=== PATIENT | female | born 1990 | race African-American/Black ===

== ENCOUNTER 2019-11-19 23:38 | Emergency (ER) | payer MEDICAID ==
[~2019-11-19] VITALS: Ht 175.3 cm; Wt 97.5 kg
[2019-11-19 23:50] VITALS: BP 151/89
[2019-11-20] MEDS ORDERED: DIPH,PERTUSS(ACELL),TET VAC/PF 0.5 ML SYRINGE. VAX IM ONE (01:00)
[2019-11-20] MEDS ORDERED: LIDOCAINE 1%/EPI 1:100,000 20 ML VIAL. INJ ONE (01:00)
--- NOTE | 2019-11-20 01:03 | PHYS DOC ---
Past Medical History Past Medical History: Other Additional Past Medical Histor: FIBROIDS Past Surgical History: Smoking Status: Current Every Day Smoker Alcohol Use: Rarely Drug Use: None General Adult EDM: Chief Complaint: LACERATION/AVULSION HPI: HPI: Patient is a 28-year-old female presents with chief complaint of laceration overlying the right knee. Patient states is prior to arrival she was trying to shave down her boyfriend's callus using a sharp object. States it slipped and cut the right knee overlying the patella. She noted immediate bleeding. Unsure of last tetanus. No other complaints. Review of Systems: Review of Systems: Constitutional: Denies fever or chills. [] Eyes: Denies change in visual acuity. [] HENT: Denies nasal congestion or sore throat. [] Respiratory: Denies cough or shortness of breath. [] Cardiovascular: Denies chest pain or edema. [] GI: Denies abdominal pain, nausea, vomiting, bloody stools or diarrhea. [] : Denies dysuria. [] Musculoskeletal: Denies back pain or joint pain. [] Integument: Positive for laceration Neurologic: Denies headache, focal weakness or sensory changes. [] Endocrine: Denies polyuria or polydipsia. [] Lymphatic: Denies swollen glands. [] Psychiatric: Denies depression or anxiety. [] Heart Score: Risk Factors: Risk Factors: DM, Current or recent (<one month) smoker, HTN, HLP, family history of CAD, obesity. Risk Scores: Score 0 - 3: 2.5% MACE over next 6 weeks - Discharge Home Score 4 - 6: 20.3% MACE over next 6 weeks - Admit for Clinical Observation Score 7 - 10: 72.7% MACE over next 6 weeks - Early Invasive Strategies Current Medications: Current Medications Medications (Trade) Dose Ordered Sig/Mike Start Time Stop Time Status Last Admin Dose Admin Diphtheria/ Tetanus/Acell Pertussis (ADACEL TDap SYRINGE) 0.5 ml ONCE ONCE 11/20/19 01:00 11/20/19 01:01 11/20/19 00:49 0.5 ML Lidocaine/ Epinephrine (LIDOCAINE 1%-EPI 1:100,000 Multi-Dose) 10 ml 1X ONCE 11/20/19 01:00 11/20/19 01:01 11/20/19 00:50 10 ML Allergies: Allergies: Allergies Coded Allergies Type Severity Reaction Last Updated Verified No Known Drug Allergies 12/22/13 No Physical Exam: PE: Constitutional: Well developed, well nourished, no acute distress, non-toxic appearance. [] HENT: Normocephalic, atraumatic, bilateral external ears normal, oropharynx moist, no oral exudates, nose normal. [] Eyes: PERRLA, EOMI, conjunctiva normal, no discharge. [] Neck: Normal range of motion, no tenderness, supple, no stridor. [] Cardiovascular:Heart rate regular rhythm, no murmur [] Lungs & Thorax: Bilateral breath sounds clear to auscultation [] Abdomen: Bowel sounds normal, soft, no tenderness, no masses, no pulsatile masses. [] Skin: Warm, dry, no erythema, no rash. [] Back: No tenderness, no CVA tenderness. [] Extremities: No tenderness, no cyanosis, no clubbing, ROM intact, no edema. [] Neurologic: Alert and oriented X 3, normal motor function, normal sensory function, no focal deficits noted. [] Psychologic: Affect normal, judgement normal, mood normal. [] Current Patient Data: Vital Signs: Vital Signs Date Time Temp Pulse Resp B/P (MAP) Pulse Ox O2 Delivery O2 Flow Rate FiO2 11/19/19 23:50 97.7 104 16 151/89 (109) 95 97.7 EKG: EKG: [] Radiology/Procedures: Radiology/Procedures: [] Laceration Repair: Obtained verbal consent from patient. Time out done prior to procedure. No sedation was required. 1 Laceration(s) to right knee. Sterile drape fashioned, following sterile procedure. Procedure: Laceration Repair Length: 1.5 cm Description: Clean Mechanism: Knife Shape: Linear Complex: No The wound area was prepped and draped in a sterile fashion. The wound area was anesthetized with 1% lidocaine with epinephrine The wound was explored with the following results: Superficial, adipose tissue visualized, no tendon involvement. Does not probe to bone.. The wound was repaired with 3-0; nylon sutures were used. The wound was dressed cleanly. The patient tolerated the procedure well. Course & Med Decision Making: Course & Med Decision Making Pertinent Labs and Imaging studies reviewed. (See chart for details) [] Patient is a well-appearing 28-year-old female presents with chief complaint of laceration overlying the right kneecap. See procedure note for further details. Given the superficial nature of the wound plain film imaging was deferred. Mechanism of injury overall with a clean knife. Antibiotics to be deferred. Tetanus updated. Instructed to have sutures removed in 5 to 7 days. Return precautions discussed and understood. Stable for discharge home. Dragon Disclaimer: Dragon Disclaimer: This electronic medical record was generated, in whole or in part, using a voice recognition dictation system. Departure Departure Impression: Primary Impression: Laceration Disposition: 01 HOME, SELF-CARE Condition: STABLE Referrals: NO PCP (PCP) Patient Instructions: Laceration Care, Adult Additional Instructions: Please have sutures removed in the next 5 to 7 days Justicifation of Admission Dx: Justifications for Admission: Justification of Admission Dx: N/A FIDELIA PORTILLO DO Nov 20, 2019 01:03
== END 2019-11-20 01:29 | disposition home or self-care (01) ==
LOC: ER 23:38
DX: S81.011A Laceration without foreign body, right knee, initial encounter (principal); F17.200 Nicotine dependence, unspecified, uncomplicated; W26.0XXA Contact with knife, initial encounter; Y93.89 Activity, other specified; Y92.89 Other specified places as the place of occurrence of the external cause; Y99.8 Other external cause status
CPT/HCPCS: 12001; 90471; 90715; 99283; J3490

== ENCOUNTER 2019-12-04 17:11 | Emergency (ER) | payer MEDICAID ==
[~2019-12-04] VITALS: Ht 172.7 cm; Wt 97.0 kg
[2019-12-04 18:24] VITALS: BP 152/100
--- NOTE | 2019-12-04 18:27 | PHYS DOC ---
Past Medical History Past Medical History: Other Additional Past Medical Histor: FIBROIDS Past Surgical History: Smoking Status: Current Every Day Smoker Alcohol Use: Rarely Drug Use: None General Adult EDM: Chief Complaint: SUTURE/STAPLE REMOVAL HPI: HPI: Patient is a 29 year old AA female who presents emergency department for suture removal. Patient reports that she had 4 sutures placed in the right anterior knee 2 weeks ago. She denies any purulent drainage, fever, or warmth to the affected area. She reports some mild redness around the wound edges. She currently denies any pain. Review of Systems: Review of Systems: Constitutional: Denies fever or chills. [] Musculoskeletal: Denies joint pain. [] Integument: See HPI Neurologic: Denies focal weakness or sensory changes. [] Complete ROS is negative unless otherwise stated in the HPI. Heart Score: Risk Factors: Risk Factors: DM, Current or recent (<one month) smoker, HTN, HLP, family history of CAD, obesity. Risk Scores: Score 0 - 3: 2.5% MACE over next 6 weeks - Discharge Home Score 4 - 6: 20.3% MACE over next 6 weeks - Admit for Clinical Observation Score 7 - 10: 72.7% MACE over next 6 weeks - Early Invasive Strategies Allergies: Allergies: Allergies Coded Allergies Type Severity Reaction Last Updated Verified No Known Drug Allergies 12/22/13 No Physical Exam: PE: Constitutional: Well developed, well nourished, no acute distress, non-toxic appearance. [] HENT: Normocephalic, atraumatic, bilateral external ears normal, nose normal. [] Eyes: PERRLA, EOMI, conjunctiva normal, no discharge. [] Neck: Normal range of motion, no stridor. [] Cardiovascular:Heart rate regular rhythm Lungs & Thorax: Respirations even and unlabored, no retractions, no respiratory distress Skin: Right knee: [address], wound edges are well approximated, no purulent drainage, mild erythema around the laceration site without warmth, wa rm, dry, no erythema, no rash. [] Extremities: Right knee: No cyanosis, ROM intact, no edema. [] Neurologic: Alert and oriented X 3, no focal deficits noted. [] Psychologic: Affect normal, judgement normal, mood normal. [] EKG: EKG: [] Radiology/Procedures: Radiology/Procedures: [] Course & Med Decision Making: Course & Med Decision Making Pertinent Labs and Imaging studies reviewed. (See chart for details) 29-year-old female presented to the emergency department for suture removal. Sutures were removed by nursing staff, no wound dehiscence or purulent drainage. Patient tolerated procedure well, no complications. I advised patient of the possibility of a keloid developing. I encouraged her to apply antibiotic ointment to the site until the redness had gone away. Then apply vitamin E oil to help reduce scarring. Follow-up with her primary care doctor as needed. Return to the ER if symptoms worsen. Patient verbalized an understanding of home care, medications, follow-up, and return to ED instructions and was in agreement with the plan of care. [] Polly Disclaimer: Polly Disclaimer: This electronic medical record was generated, in whole or in part, using a voice recognition dictation system. Departure Departure Impression: Primary Impression: Encounter for removal of sutures Disposition: HOME, SELF-CARE Condition: STABLE Referrals: NO PCP (PCP) Patient Instructions: Suture Removal-Brief Additional Instructions: Antibiotic ointment and vitamin E oil as instructed. Follow-up with your primary care doctor as needed. Return to the ER if symptoms worsen or you develop a fever. MOODY DUNN [employer] Dec 04, 2019 18:27
== END 2019-12-04 18:29 | disposition home or self-care (01) ==
LOC: ER 17:11
DX: S81.011D Laceration without foreign body, right knee, subsequent encounter (principal); F17.200 Nicotine dependence, unspecified, uncomplicated; X58.XXXD Exposure to other specified factors, subsequent encounter
CPT/HCPCS: 99282